=== PATIENT | male | born 1975 | race African-American/Black ===

== ENCOUNTER 2016-08-27 11:27 | Emergency (ER) | payer MEDICARE, OTHER ==
[~2016-08-27] VITALS: Ht 182.9 cm; Wt 98.9 kg
[2016-08-27] MEDS ORDERED: LORazepam 2 MG/ML, 1ML IVPush ONE (12:00)
[2016-08-27] MEDS ORDERED: SODIUM CHLORIDE FLUSH 10ML SYR IVF ONE (12:00)
[2016-08-27] MEDS ORDERED: ASPIRIN 81 MG TABLET CHEW PO ONE (12:00)
[2016-08-27] MEDS ORDERED: ASPIRIN 81 MG TABLET CHEW ONE (12:11)
[2016-08-27] MEDS ORDERED: SEVE800T8 PO (12:21)
[2016-08-27] MEDS ORDERED: CLON1PAT9 TD (12:21)
[2016-08-27] MEDS ORDERED: FA/V1TAB PO (12:21)
[2016-08-27 12:27] LABS: ASPARTATE AMINO TRANSFERASE 10 U/L (15-37); BLOOD UREA NITROGEN 49 mg/dL (7-18)
[2016-08-27 12:36] LABS: IS PT STATUS REG ER OR PRE ER? YES
[2016-08-27] MEDS ORDERED: FENTANYL PF 100 MCG/2ML ONE (13:26)
[2016-08-27] MEDS ORDERED: MIDAZOLAM 1 MG/ML, 5ML ONE (13:27)
[2016-08-27] MEDS ORDERED: PROPOFOL 10 MG/ML, 20ML ONE (13:33)
[2016-08-27] MEDS ORDERED: PROPOFOL 10 MG/ML, 20ML IVP ONE (14:00)
[2016-08-27 14:43] VITALS: BP 119/78
== END 2016-08-27 15:12 | disposition home or self-care (01) ==
LOC: ED 14:10
DX: I48.0 Paroxysmal atrial fibrillation (principal); I12.0 Hypertensive chronic kidney disease with stage 5 chronic kidney disease or end stage renal disease; N18.6 End stage renal disease; Z79.82 Long term (current) use of aspirin; Z99.2 Dependence on renal dialysis
CPT/HCPCS: 36415; 71010; 80053; 83605; 83690; 83735; 83880; 84436; 84484; 85025; 92960; 93005; 99152